=== PATIENT | female | born 1930 | race Caucasian/White ===

== ENCOUNTER 2018-03-23 16:34 | Emergency (ER) | payer MEDICARE, OTHER ==
[~2018-03-23] VITALS: Ht 162.6 cm; Wt 66.2 kg
[2018-03-23 16:40] VITALS: BP 133/75
[2018-03-23 18:15] LABS: ANION GAP 10.2 (8-16); CARBON DIOXIDE 25.3 mmol/L (21-32); CHLORIDE 109 mmol/L (98-107); CREATININE 0.9 mg/dL (0.6-1.3); GLUCOSE 94 mg/dL (74-106); POTASSIUM 4.5 mmol/L (3.5-5.1); SODIUM SERUM 140 mmol/L (136-145); UREA NITROGEN, BLOOD 15 mg/dL (7-18)
[2018-03-23 18:17] LABS: BASOPHILS % (AUTO) 0.9 % (0.0-2.0); EOSINOPHILS # (AUTO) 0.1 K/uL (0-0.4); EOSINOPHILS % (AUTO) 2.4 % (0.0-4.0); HEMATOCRIT 42.5 % (36-48); HEMOGLOBIN 13.8 g/dL (12.0-16.0); LYMPHOCYTES # (AUTO) 0.9 K/uL (2.5-16.5); LYMPHOCYTES % (AUTO) 18.4 % (20.5-51.1); MEAN CORPUSCULAR HEMOGLOBIN 31 pg (27-31); MEAN CORPUSCULAR HGB CONC 32 g/dL (33-37); MEAN CORPUSCULAR VOLUME 95.7 fL (80-94); MONOCYTES # (AUTO) 0.4 K/uL (0.8-1.0); MONOCYTES % (AUTO) 7.3 % (1.7-9.3); NEUTROPHILS # (AUTO) 3.5 K/uL (1.8-7.7); PLATELET COUNT (AUTO) 214 K/uL (140-450); RED BLOOD CELL COUNT(AUTO) 4.44 MIL/uL (4.20-5.40); RED CELL DISTRIBUTION WIDTH 13.5 % (11.6-13.7)
[2018-03-23 18:18] LABS: ALBUMIN 3.7 g/dL (3.4-5.0); ASPARTATE AMINOTRANSFERASE 19 U/L (15-37); LIPASE 199 U/L (73-393); TOTAL BILIRUBIN 0.9 mg/dL (0.0-1.0)
[2018-03-23 19:30] VITALS: BP 112/64
== END 2018-03-23 19:30 | disposition home or self-care (01) ==
LOC: MED 16:34
DX: R19.7 Diarrhea, unspecified (principal); N39.0 Urinary tract infection, site not specified; E03.9 Hypothyroidism, unspecified; Z90.49 Acquired absence of other specified parts of digestive tract
CPT/HCPCS: 36415; 80053; 81002; 83690; 85025; 99284

== ENCOUNTER 2018-04-11 15:27 | Inpatient (IN) | payer OTHER, MEDICARE ==
[~2018-04-11] VITALS: Ht 152.4 cm; Wt 64.9 kg
[2018-04-11 15:33] VITALS: BP 109/57
--- NOTE | 2018-04-11 15:43 | NUR ---
PT PROVIDES URINE SAMPLE AND AMBULATES TO THE [facility] W/ GAIT AND VSS TO WAIT FOR A BED
--- NOTE | 2018-04-11 15:52 | NUR ---
PT AMBULATES TO BED 4
--- NOTE | 2018-04-11 16:00 | NUR ---
87 YO F BIB DAUGHTER AFTER REFERRAL FROM THE CLINIC NEXT DOOR. PMD STATED PT W/ FEVER AND ABD PAIN + O2 SAT 92%. PT TEMP TAKEN 3 TIMES IN TRIAGE, 2X TEMP SCAN, 98.6 AND 1 ORAL TEMP, 98.7. PT W/ O2 SAT 92%, NO DYSPNEA OR SOB. COLOR APPROPRIATE FOR ETHNICITY. 17/MIN. BL LOWER ABD/FLANK PAIN X 2.
[2018-04-11] MEDS ORDERED: ONDANSETRON 4 MG/2 ML VIAL IVP ONE (16:25)
[2018-04-11] MEDS ORDERED: KETOROLAC 30 MG/ML VIAL IVP ONE (16:25)
[2018-04-11] MEDS ORDERED: NACL 0.9% 1,000 ML IV ONE (16:25)
--- NOTE | 2018-04-11 17:05 | NUR ---
PATIENT STATES NO NEEDS AT THIS TIME.
[2018-04-11 17:21] LABS: APPEARANCE,URINE HAZY (CLEAR); BILIRUBIN,URINE NEGATIVE (NEGATIVE); BLOOD, URINE NEGATIVE (NEGATIVE); COLOR,URINE ORANGE (YELLOW); LEUKOCYTE ESTERASE ,URINE 1+ (NEGATIVE); NITRITE, URINE NEGATIVE (NEGATIVE); UGLUCOSE NEGATIVE (NEGATIVE)
[2018-04-11 17:25] LABS: BASOPHILS % (AUTO) 0.5 % (0.0-2.0); EOSINOPHILS % (AUTO) 0.4 % (0.0-4.0); HEMATOCRIT 40.7 % (36-48); HEMOGLOBIN 13.2 g/dL (12.0-16.0); LYMPHOCYTES # (AUTO) 0.7 K/uL (2.5-16.5); LYMPHOCYTES % (AUTO) 8.7 % (20.5-51.1); MEAN CORPUSCULAR HEMOGLOBIN 31 pg (27-31); MEAN CORPUSCULAR HGB CONC 33 g/dL (33-37); MEAN CORPUSCULAR VOLUME 94.5 fL (80-94); MONOCYTES # (AUTO) 0.5 K/uL (0.8-1.0); MONOCYTES % (AUTO) 6.3 % (1.7-9.3); NEUTROPHILS # (AUTO) 7.2 K/uL (1.8-7.7); NEUTROPHILS % (AUTO) 84.1 % (42.2-75.2); PLATELET COUNT (AUTO) 173 K/uL (140-450); RED BLOOD CELL COUNT(AUTO) 4.31 MIL/uL (4.20-5.40); WHITE BLOOD COUNT (AUTO) 8.6 K/uL (4.8-10.8)
[2018-04-11 17:28] LABS: RBC,URINE 0-5 (RARE) /HPF (0-5); WBC,URINE 6-15 (FEW) /HPF (0-5)
[2018-04-11 17:32] LABS: ANION GAP 15.7 (8-16); CARBON DIOXIDE 24.5 mmol/L (21-32); CHLORIDE 99 mmol/L (98-107); CREATININE 1.3 mg/dL (0.6-1.3); GLUCOSE 103 mg/dL (74-106); POTASSIUM 4.2 mmol/L (3.5-5.1); SODIUM SERUM 135 mmol/L (136-145); UREA NITROGEN, BLOOD 19 mg/dL (7-18)
[2018-04-11 17:39] LABS: ALBUMIN 3.6 g/dL (3.4-5.0); ASPARTATE AMINOTRANSFERASE 43 U/L (15-37); LIPASE 235 U/L (73-393); TOTAL BILIRUBIN 1.8 mg/dL (0.0-1.0)
[2018-04-11] MEDS ORDERED: ASPIRIN 81 MG TAB.CHEW PO ONE (18:20)
[2018-04-11] MEDS ORDERED: LORazepam 2 MG/ML VIAL IVP PRN (18:30)
[2018-04-11] MEDS ORDERED: HYDROcodone/APAP 5/325 MG 1 TAB TAB PO PRN (18:30)
[2018-04-11] MEDS ORDERED: ONDANSETRON 4 MG/2 ML VIAL IVP PRN (18:30)
[2018-04-11] MEDS ORDERED: ACETAMINOPHEN 325 MG TAB PO PRN (18:30)
[2018-04-11] MEDS ORDERED: MORPHINE SULFATE 2 MG/ML SYR IVP PRN (18:30)
--- NOTE | 2018-04-11 19:05 | NUR ---
REPORTED THAT PT WAITING FOR AT THIS TIME. PT TO REMAIN IN ED UNTILL ROOM AVAILABLE.
--- NOTE | 2018-04-11 19:11 | NUR ---
REPORT GIVEN TO JOSÉ MIGUEL BOWERS FOR CONTINUATION OF PATIENT CARE. PATIENT STABLE IN BED AT TIME OF TRANSFER OF CARE.
--- NOTE | 2018-04-11 20:05 | NUR ---
RECEIVED REPORT FROM LEADLIGHTERROBINSON VALDEZ FOR CONTINUITY OF CARE. PT A/OX4 ON ROOM AIR, AZERBAIJANI SPEAKING. PT IS ABLE TO MAKE NEEDS KNOWN, ABLE TO FOLLOW COMMANDS. PT AMBULATES WITH STEADY GAIT AND SKIN IS INTACT. PT HAS A 20G IV TO LEFT AC, ASYMPTOMATIC AND INTACT. VITAL SIGNS WITHIN NORMAL LIMITS. PT STABLE, DENIES HAVING ANY PAIN, NO SIGNS OF DISTRESS NOTED AT THIS TIME. PT POSITIONED FOR COMFORT. BED IN LOWEST POSITION, BED ALARM ON. WILL CONTINUE TO MONITOR.
--- NOTE | 2018-04-11 20:10 | NUR ---
REPORT GIVEN AND CARE TRANSFERED TO LIS RN ROOM 122A. TRANSFERED VIA RNEY WITH VSS.
[2018-04-11] MEDS ORDERED: cefTRIAXone 1,000 MG VIAL ONE (20:47)
--- NOTE | 2018-04-11 20:56 | NUR ---
ADMINISTERED SCHEDULED MEDICATIONS, PT TOLERATED WELL.
[2018-04-11 21:00] VITALS: BP 99/50
--- NOTE | 2018-04-11 22:05 | NUR ---
GAVE PT CRACKERS, JUICE, AND JELL-O, PER PT REQUEST.
[2018-04-12] VITALS: BP 106/49
--- NOTE | 2018-04-12 | NUR ---
VITAL SIGNS WITHIN NORMAL LIMITS. PT STABLE, DENIES HAVING ANY PAIN, NO SIGNS OF DISTRESS NOTED AT THIS TIME. PT POSITIONED FOR COMFORT. BED IN LOWEST POSITION, BED ALARM ON. WILL CONTINUE TO MONITOR.
--- NOTE | 2018-04-12 02:12 | NUR ---
LAB BRAZER FURNACE DRAWING BLOOD FROM PT.
[2018-04-12 02:49] LABS: CREATINE KINASE MB 1.1 ng/mL (0-3.6)
[2018-04-12 04:00] VITALS: BP 104/52
[2018-04-12 06:09] LABS: BASOPHILS % (AUTO) 0.4 % (0.0-2.0); EOSINOPHILS # (AUTO) 0.2 K/uL (0-0.4); HEMATOCRIT 37.3 % (36-48); HEMOGLOBIN 12.3 g/dL (12.0-16.0); LYMPHOCYTES # (AUTO) 0.8 K/uL (2.5-16.5); LYMPHOCYTES % (AUTO) 11.3 % (20.5-51.1); MEAN CORPUSCULAR HEMOGLOBIN 31 pg (27-31); MEAN CORPUSCULAR HGB CONC 33 g/dL (33-37); MEAN CORPUSCULAR VOLUME 94.1 fL (80-94); MONOCYTES # (AUTO) 0.7 K/uL (0.8-1.0); MONOCYTES % (AUTO) 8.8 % (1.7-9.3); NEUTROPHILS # (AUTO) 5.8 K/uL (1.8-7.7); NEUTROPHILS % (AUTO) 77.5 % (42.2-75.2); PLATELET COUNT (AUTO) 153 K/uL (140-450); RED BLOOD CELL COUNT(AUTO) 3.96 MIL/uL (4.20-5.40); RED CELL DISTRIBUTION WIDTH 13.1 % (11.6-13.7); WHITE BLOOD COUNT (AUTO) 7.5 K/uL (4.8-10.8)
[2018-04-12 06:41] LABS: ALBUMIN 2.9 g/dL (3.4-5.0); ANION GAP 14.2 (8-16); ASPARTATE AMINOTRANSFERASE 36 U/L (15-37); CARBON DIOXIDE 21.7 mmol/L (21-32); CHLORIDE 103 mmol/L (98-107); GLUCOSE 97 mg/dL (74-106); MAGNESIUM 1.8 mg/dL (1.8-2.4); POTASSIUM 3.9 mmol/L (3.5-5.1); SODIUM SERUM 135 mmol/L (136-145); TOTAL BILIRUBIN 1.5 mg/dL (0.0-1.0); UREA NITROGEN, BLOOD 15 mg/dL (7-18)
--- NOTE | 2018-04-12 07:50 | NUR ---
ENDORSED PT TO DAY SHIFT ROBINSON VERDUGO FOR CONTINUITY OF CARE. PT IN STABLE CONDITION. Addendum: 04/12/18 at 0751 by Alicja Navas RN DISREGARD
--- NOTE | 2018-04-12 07:51 | NUR ---
ENDORSED PT TO DAY SHIFT RN BINH FOR CONTINUITY OF CARE. PT IN STABLE CONDITION.
--- NOTE | 2018-04-12 07:52 | NUR ---
RECEIVED BEDSIDE REPORT FROM CUSTODIAN SUPERVISOR NURSE. PATIENT IS AWAKE, ALERT AND ORIENTEDX4. MAURITIAN SPEAKER. NO SIGNS OF DISTRESS ON RA. SKIN IS INTACT. IV ON L AC 20G SL. CLEAN, DRY AND INTACT. GAIT IS STEADY. BUT FALL RISK PROTOCOL IN PLACE D/T MILD WEAKNESS. PATIENT IS CONTINENT. NO COMPLAINTS AT THIS TIME. BED IN LOW POSITION. CALL LIGHT WITHIN REACH. WILL CONTINUE TO MONITOR THE PATIENT
[2018-04-12 08:00] VITALS: BP 100/44
--- NOTE | 2018-04-12 08:22 | NUR ---
PATIENT HAS BEEN SCREENED AND CATEGORIZED HIGH NUTRITION RISK. PATIENT WILL BE SEEN WITHIN 1-2 DAYS OF ADMISSION. 04/12/18-04/13/[address]
[2018-04-12] MEDS: ENOXAPARIN 30 MG/0.3 ML SYR SUBQ SCH (09:21)
[2018-04-12] MEDS: ASPIRIN 81 MG TAB.CHEW PO SCH (09:22)
--- NOTE | 2018-04-12 09:22 | NUR ---
ADMINISTERED SCHEDULED MEDICATIONS. LOVENOX GIVEN IN LLQ. PATIENT TOLERATED WELL. NO SIGNS OF DISTRESS. IV ON L AC DRESSING CHANGED D/T BLOOD AT SITE. CLEAN, DRY AND INTACT. NO OTHER COMPLAINTS. DAUGHTER AT BEDSIDE. WILL CONTINUE TO MONITOR
[2018-04-12 10:59] LABS: CREATINE KINASE MB 0.8 ng/mL (0-3.6)
--- NOTE | 2018-04-12 11:00 | NUR ---
GRANDDAUGHTER AT BEDSIDE. NO SIGNS OF DISTRESS. WILL CONTINUE TO MONITOR THE PATIENT.
[2018-04-12 12:00] VITALS: BP 98/46
--- NOTE | 2018-04-12 13:00 | NUR ---
PATIENT LAYING IN BED. NO SIGNS OF DISTRESS. BED IN LOW POSITION. CALL LIGHT WITHIN REACH. WILL CONTINUE TO MONITOR THE PATIENT.
--- NOTE | 2018-04-12 15:16 | NUR ---
04/12/18 RD INITIAL ASSESSMENT COMPLETED PLEASE REFER TO NUTRITION ASSESSMENT UNDER CARE ACTIVITY FOR ESTIMATED NUTRITIONAL NEEDS. RD RECOMMENDATIONS: 1. CONTINUE CARDIAC DIET TOLERATED 2. ENCOURAGE INCREASING PO INTAKE 3. RD PROVIDED NUTRITION EDUCATION ON CARDIAC DIET 4. FOLLOW UP WITH FURTHER EDUCATION 5. RD TO FOLLOW-UP 3-5 DAYS, MODERATE RISK BIJAL GUTIERREZ RD
--- NOTE | 2018-04-12 15:30 | NUR ---
PATIENT HAS PAIN ON L SIDE OF ABD. SHE SAID IT IS TOLERABLE AND DOES NOT WANT TO TAKE PAIN MEDS. DAUGHTER IS TELLING ME TO GIVE HER PAIN MEDS BUT PATIENT REFUSES. TOLD PATIENT IF SHE WANTS IT TO PLEASE LET ME KNOW AND TOLD DAUGHTER I CAN ONLY GIVE IT IF PATIENT REQUESTS, CANNOT FORCE PATIENT TO TAKE PAIN MED. BOTH PATIENT AND DAUGHTER VERBALIZED UNDERSTANDING.
--- NOTE | 2018-04-12 15:43 | NUR ---
ORDERED TUNA SANDWICH FOR PATIENT. DIETARY SAID THEY WILL BRING ONE NOW.
[2018-04-12 16:00] VITALS: BP 127/70
--- NOTE | 2018-04-12 16:30 | NUR ---
ADMINISTERED PRN PAIN MED. PATIENT TOLERATED WELL. WILL CONTINUE TO MONITOR. DAUGHTER AT BEDSIDE
--- NOTE | 2018-04-12 17:43 | NUR ---
PATIENT IS EATING. NO SIGNS OF DISTRESS. WILL CONTINUE TO MONITOR
--- NOTE | 2018-04-12 18:41 | NUR ---
patient in no distress. family at bedside. will continue to monitor the patient
--- NOTE | 2018-04-12 19:05 | NUR ---
GAVE BEDSIDE REPORT TO FAMILY THERAPIST NURSE. PATIENT ENDORSED IN STABLE CONDITION
--- NOTE | 2018-04-12 19:10 | NUR ---
RECEIVED PT AWAKE ON BED TALKING TO FAMILY MEMBER AT BEDSIDE, VITAL SIGNS TAKEN, BP ON THE LOW SIDE BUT STABLE, DENIES ANY PAIN, PLAN OF CARE DISCUSSED, SAFETY MEASURES IN PLACE, CALL LIGHT WITHIN REACH.
[2018-04-12 20:00] VITALS: BP 94/43
--- NOTE | 2018-04-12 21:25 | NUR ---
PT AMBULATED TO BR ACCOMPANIED BY FAMILY MEMBER, PT WITH STEADY GAIT, VOIDED FREELY, ALL NEEDS ATTENDED.
[2018-04-13] VITALS: BP 104/48
--- NOTE | 2018-04-13 | NUR ---
PT SLEEPING, EASILY AROUSABLE, VITAL SIGNS STABLE, DENIES ANY PAIN, PT WENT BACK TO SLEEP, CONTINUE TO MONITOR CLOSELY.
[2018-04-13 04:00] VITALS: BP 108/59
--- NOTE | 2018-04-13 04:00 | NUR ---
PT SLEEPING, EASILY AROUSABLE, VITAL SIGNS STABLE, DENIES PAIN, MONITORED CLOSELY.
--- NOTE | 2018-04-13 07:25 | NUR ---
PT AMBULATING FROM THE BR WITH STEADY GAIT, NO DISTRESS NOTED, REPORT GIVEN TO RN NICHOLE FOR CONTINUITY OF CARE.
--- NOTE | 2018-04-13 07:27 | NUR ---
RECEIVED REPORT FROM PM NURSE AT BEDSIDE. PT USING RESTROOM AT THIS TIME. PT ABLE WALK ON HERSELF. INTRODUCED SELF AND UPDATED BOARD. PLACED CALL LIGHT WITHIN PT REACH. INFORM TO USE CALL LIGHT FOR ANY HELP. PT ARMENIAN SPEAKING ONLY. NO SIGN OF DISTRESS NOTED. ALL SAFETY MEASURE IN PLACE. WILL CONTINUE TO MONITOR PT.
[2018-04-13 08:00] VITALS: BP 109/57
[2018-04-13] MEDS: ASPIRIN 81 MG TAB.CHEW PO SCH (08:39)
[2018-04-13] MEDS: ENOXAPARIN 30 MG/0.3 ML SYR SUBQ SCH (08:43)
--- NOTE | 2018-04-13 09:00 | NUR ---
ADMINSITERED MEDS TO PT ORDERED. TOLERATED WELL. NO SIGN OF DISTRESS NOTED. CALL LIGHT WITHIN REACH. INFORMED TO USE CALL LIGHT FOR ANY HELP . WILL CONTINUE TO MONITOR PT.
[2018-04-13] MEDS ORDERED: SYN.075 PO (09:36)
--- NOTE | 2018-04-13 10:00 | NUR ---
DR. ROGERS AT PTS BEDSIDE. PT TO BE DISCHARGED TODAY. TALKING TO PATIENT.
--- NOTE | 2018-04-13 10:15 | NUR ---
Received order for high risk clinic. Spoke with Sunita from [facility] pt does not qualify for high risk clinic since pt has Medicare PT B only.
[2018-04-13] MEDS ORDERED: SULF-59 PO (10:37)
--- NOTE | 2018-04-13 10:38 | NUR ---
Deb Rose RN pt cannot get high risk authorization per Sunita from [facility] cause pt has Medicare PT B Only. Appointment scheduled for tuesday04/17/18 at 1030 with PCP Usama Moreno PA-C address: [address] [place] [phone].
--- NOTE | 2018-04-13 11:06 | NUR ---
Appointment schedule given to pt's daughter Cindy with verbal understanding.
--- NOTE | 2018-04-13 11:45 | NUR ---
PT WENT HOME WITH DAUGHTER. ALL DISCHARGE PRESCRIPTION AND THE PACKET PROVIDED. VERBALIZED UNDERSTANDING OF DISCHARGE INSTRUCTION. PT STABLE AND WALKED HERSELF TO THE LOBBY.
== END 2018-04-13 11:45 | disposition home or self-care (01) | DRG 463 ==
LOC: MED 15:27 → MTU 18:27 → OBSVTOIN 04-12 01:23
PROVIDERS: ADMIT Hospitalist; ATTEND Hospitalist
DX: N12 Tubulo-interstitial nephritis, not specified as acute or chronic (principal); N17.9 Acute kidney failure, unspecified; E03.9 Hypothyroidism, unspecified; M17.12 Unilateral primary osteoarthritis, left knee; R79.89 Other specified abnormal findings of blood chemistry; N18.2 Chronic kidney disease, stage 2 (mild); R07.89 Other chest pain; K29.70 Gastritis, unspecified, without bleeding; K21.9 Gastro-esophageal reflux disease without esophagitis; Z90.49 Acquired absence of other specified parts of digestive tract; Z79.899 Other long term (current) drug therapy
CPT/HCPCS: 96361; 96374; 96375; 99218; 99285; G0378; 36415; 71045; 73562; 80053; 81001; 82550; 82553; 83690; 83735; 84443; 84484; 85025; 87081; 87086; 93005; 97116; J0696; J1650; J1885; J2405; J7060; Q0092